=== PATIENT | female | born 1970 | race Caucasian/White ===

== ENCOUNTER 2020-04-03 11:33 | Day surgery (SDC) | payer OTHER ==
[2020-03-26 09:01] VITALS: BMI 23.4
[2020-04-03] MEDS ORDERED: LIDOCAINE HCL/PF 2% SDV 5ML VIAL ONE (14:09)
[2020-04-03] MEDS ORDERED: PROPOFOL 20 ML ONE (14:09)
[2020-04-03] MEDS ORDERED: MIDAZOLAM HCL 2 MG/2 ML SINGLE DOSE VIAL ONE (14:09)
[2020-04-03] MEDS ORDERED: ceFAZolin SODIUM 1 GM VIAL ONE (14:24)
[2020-04-03] MEDS ORDERED: ONDANSETRON 4 MG/2 ML VIAL ONE (14:39)
[2020-04-03] MEDS ORDERED: DEXAMETHASONE SOD PHOSPHATE 4 MG/1 ML VIAL ONE (14:39)
--- NOTE | 2020-04-03 14:52 | PN ---
Progress Note (short form) - Note Progress Note: 49F s/p RIGHT wrist open deQuervain's release POD #0. -Pain control: Percocet, Duexis ordered to pharmacy for analgesia; OK to use OTC NSAID's instead. -Incentive spirometry. -STRICT NWB RUE. -Keep dressing clean & dry. -Elevate wrist/hand above level of heart. -Discharge home: f/u [facility] [place] [facility] 7-10 days; call for appointment: . Haris Rodriguez MD (Orthopaedic Surgery).
--- NOTE | 2020-04-03 14:53 | OP ---
Operative Note - Note: Operative Date: 04/03/20 Pre-Operative Diagnosis: Right wrist deQuervain's tenosynovitis Operation: Open right wrist 1st dorsal extensor compartment (deQuervain's) release Findings: Tourniquet Pressure: 250mmHg Tourniquet Time: 14 minutes Post-Operative Diagnosis: Same as Pre-op Surgeon: Haris Rodriguez Store Product Demonstrator: Perry Rodriguez Anesthesiologist/DIRECTOR OF BUSINESS SYSTEMS: Allyson Aaron Anesthesia: General Estimated Blood Loss (mls): 0 Fluid Volume Replaced (mls): 500 (Crystalloid) Operative Report Dictated: Yes
[2020-04-03] MEDS ORDERED: IBUPROFEN 800 MG/8 ML IJ IVPB PRN (15:07)
[2020-04-03] MEDS ORDERED: oxyCODONE HCL 5 MG TABLET PO PRN (15:07)
[2020-04-03] MEDS ORDERED: ONDANSETRON 4 MG/2 ML VIAL IVPUSH PRN (15:07)
[2020-04-03] MEDS ORDERED: LACTATED RINGERS SOLUTION 1,000 ML IV SCH (15:15)
[2020-04-03 16:06] VITALS: PULSE 76; TEMP 98
[2020-04-03 16:17] VITALS: BP 127/75
--- NOTE | 2020-04-03 18:48 | OP ---
Date of Operation: 04/03/2020 Surgeon: Haris Rodriguez MD Flatware Maker: Perry Rodriguez MD Pre-Operative Diagnosis: Traumatic right wrist DeQuervains tenosynovitis. Post-Operative Diagnosis: Traumatic right wrist DeQuervains tenosynovitis. Surgical Procedure: Open release of 1st dorsal compartment of right wrist (AKA DeQuervain's release). (26261) Anaesthesia: General. Position: Supine Incision: Transverse. Tourniquet Pressure: 250mmHg. Tourniquet Time: 14 minutes. Estimated Blood Loss: 0cc. Intravenous Fluid: 500cc. Specimens: None. Drains: None. Complications: None. Urine output: None. Bacteriology: None. Transfusions: None. Closure: 3-0 Nylon. Indications: The patient is a 49-year-old female who was indicated for a right wrist open De Quervains (first dorsal compartment) release in order to ameliorate the symptoms associated with traumatic De Quervains tenosynovitis, and improve the use of her hand. The patient was identified in the holding area by her armband. A long discussion was held with the patient regarding the risks, benefits and alternatives of the above-named procedure. Risks include but are not limited to: pain, bleeding, infection, damage to surrounding structures (including nerves, blood vessels, skin, ligaments, tendons and bone), reflex sympathetic dystrophy (RSD), incomplete carpal tunnel release, wound complications, need for further surgery, blood clots, myocardial infarction, pulmonary embolism, anesthesia complications, compartment syndrome, limb loss, limp, loss of function, and . Benefits as mentioned above. Alternatives include no surgery. All questions were answered. The patient understood and agreed to the procedure. Informed consent was obtained, witnessed and verified. The patients correct operative limb - the right upper extremity - was marked, and the patient was taken to the operating room after being seen by the anesthesia and nursing staff. Procedure: The patient was brought into the operating room, placed supine on the OR table and secured with a safety strap. Consent and the operative site were again verified with the patient and nursing and anaesthesia staff. Anaesthesia, including 1g IV Ancef, was then administered without complication. A time-out was done led by me, the attending surgeon. The patient was positioned with all bony prominences well padded. The operative arm was placed on an arm table. A tourniquet was placed proximally on the right arm and set to 250mmHg. The operative limb was prepped in standard sterile fashion using betadine prep & scrub, wiped off with alcohol, DuraPrep applied, and then free draped. A time-out was repeated, the right upper extremity was elevated and exsanguinated with gravity online (IE not using an Esmarch), the tourniquet was inflated, and the case began. We did not exsanguinate the limb with an Esmarch because there was a large, superficial vein running obliquely over our intended transverse incision. We wanted to maintain visualization of this vessel to avoid inadvertently injuring it during the dissection. A 2cm transverse skin incision was made over the area of tenderness of the first dorsal compartment of the wrist, overlying the radial aspect of the distal radial styloid. Blunt dissection with Littler scissors was carried through the subcutaneous fat down to the level of the extensor retinaculum overlying the first dorsal compartment tendons. The superficial branch of the radial nerve was not seen. Ragnell retractors were used to facilitate visualization of the wound. The proximal and distal borders of the retinaculum were identified. A longitudinal incision through the retinaculum was made using a fresh #15 blade. The retinaculum was fully released proximally and distally using Littler scissors. A freer elevator was used to mobilize the free flaps of the incised retinaculum. 2 slips of the abductor pollicis longus (APL) tendon were immediately visualized and elevated using a freer elevator. The extensor pollicis brevis (EPB) tendon was visualized and found to be within its own sub-sheath. The sub-sheath was incised using a fresh #15 blade and we elected not to partially excise the dorsal wall of the septum. The EPB was elevated using a freer elevator. The volar extensor retinaculum remained over the released tendons. The thumb was then abducted and extended and there was no evidence of volar subluxation of the APL or EPB tendons. With movement of the thumb, all tendons glided freely after the retinacular releases. The wound was then copiously irrigated using normal saline solution. The skin was closed using a 3-0 Nylon suture in simple interrupted, vertical mattress fashion. A sterile compressive dressing was applied. The tourniquet was released at a final time of 14 minutes. The sponge and needle counts were correct at the end of the case and I, the attending surgeon, was present and scrubbed throughout the case. The patient was then transferred to the recovery room in stable condition, as per the anesthesia team, having tolerated the procedure well. MD SUMMER Dimas/[id number] MTDD
== END 2020-04-03 16:14 | disposition home or self-care (01) ==
LOC: FASU 11:33
PROVIDERS: ATTEND Orthopaedic Surgery Adult Reconstructive Orthopaedic Surgery
PROC: 0LN50ZZ Release Right Lower Arm and Wrist Tendon, Open Approach (ICD-10-PCS; principal; 2020-04-03 14:35)
DX: M65.4 Radial styloid tenosynovitis [de Quervain] (principal)
CPT/HCPCS: 84703; 94760